=== PATIENT | female | born 1980 | race Caucasian/White ===

== ENCOUNTER 2021-05-06 20:07 | Emergency (ER) | payer OTHER ==
[~2021-05-06] VITALS: Ht 165.1 cm; Wt 89.0 kg
--- NOTE | 2021-05-06 20:17 | PHYS DOC ---
General Adult HPI: HPI: Patient is a 40 year old female with past medical history of fibromyalgia, chronic lymphedema and history of palpitations presents for evaluation after syncopal episode. Syncopal episode occurred prior to arrival. Patient started to feel faint sat down and then had a positive LOC. states patient was unresponsive for approximately 2 minutes. states when patient woke up she was hyperventilating and her bilateral hands were clenched. states patient was confused. No tonic-clonic activity was witnessed Patient arrived via EMS. At the time my examination she is alert and oriented x4. Her vital signs are stable. Patient has no complaints at this time Review of Systems: Review of Systems: Review of systems: Constitutional symptoms- No fever, no chills. Eyes- No Discharge, No Visual Loss Respiratory symptoms- No shortness of breath, No wheezing, No Dyspnea on Exertion Cardiovascular Systems; No chest pain, No Palpitations, No syncope Gastrointestinal symptoms: NO abdominal pain, no nausea, no vomiting or diarrhea. Genitourinary symptoms: No dysuria. Musculoskeletal symptoms: No back pain No extremity pain. NEUROLOGICAL Symptoms: No headache, no generalized weakness; No focal Weakness positive syncope Skin: No rash. Heart Score: C/O Chest Pain: N/A Risk Factors: Risk Factors: DM, Current or recent (<one month) smoker, HTN, HLP, family history of CAD, obesity. Risk Scores: Score 0 - 3: 2.5% MACE over next 6 weeks - Discharge Home Score 4 - 6: 20.3% MACE over next 6 weeks - Admit for Clinical Observation Score 7 - 10: 72.7% MACE over next 6 weeks - Early Invasive Strategies Physical Exam: PE: Constitutional: Well developed, well nourished, no acute distress, non-toxic appearance. [] HENT: Normocephalic, atraumatic, bilateral external ears normal, oropharynx moist, no oral exudates, nose normal. [] Eyes: PERRLA, EOMI, conjunctiva normal, no discharge. [] Neck: Normal range of motion, no tenderness, supple, no stridor. [] Cardiovascular:Heart rate regular rhythm, no murmur [] Lungs & Thorax: Bilateral breath sounds clear to auscultation [] Abdomen: Bowel sounds normal, soft, no tenderness, no masses, no pulsatile masses. [] Skin: Warm, dry, no erythema, no rash. [] Back: No tenderness, no CVA tenderness. [] Extremities: No tenderness, no cyanosis, no clubbing, ROM intact, no edema. [] Neurologic: Alert and oriented X 3, normal motor function, normal sensory function, no focal deficits noted. [] Psychologic: Affect normal, judgement normal, mood normal. [] EKG: EKG: [] Performed at 2015 Rate 75 Normal sinus rhythm No ST elevation No ST depression No acute PA Radiology/Procedures: Radiology/Procedures: [] Course & Med Decision Making: Course & Med Decision Making Pertinent Labs and Imaging studies reviewed. (See chart for details) [] Patient was evaluated for chief complaint. Work-up consisted of laboratory analysis radiologic imaging and EKG. Results reviewed and discussed with parent here. Patient without any acute lab or radiologic imaging. Treatment included IV fluids. Patient states she feels back to baseline we will discharge patient home with instructions to follow-up with primary care physician. Radha Disclaimer: Radha Disclaimer: This electronic medical record was generated, in whole or in part, using a voice recognition dictation system. Departure Departure Impression: Primary Impression: Syncope Disposition: HOME / SELF CARE / HOMELESS Condition: STABLE Patient Instructions: Syncope WANDA DAY I DO May 06, 2021 20:17
[2021-05-06 21:13] LABS: BASO # 0.1 x10^3/uL (0.0-0.2); BASO % 1 % (0-3); EOS # 0.3 x10^3/uL (0.0-0.7); EOS % 4 % (0-3); LYMPH # 4.3 x10^3/uL (1.0-4.8); LYMPH % 51 % (24-48); MEAN CORPUSCULAR HEMOGLOBIN 31 pg (25-35); MEAN CORPUSCULAR HGB CONC 34 g/dL (31-37); MEAN CORPUSCULAR VOLUME 91 fL (79-100); MONO # 0.6 x10^3/uL (0.0-1.1); MONO % 7 % (0-9); NEUT # 3.1 x10^3/uL (1.8-7.7); NEUT % 38 % (31-73); PLATELET COUNT 293 x10^3/uL (140-400); RED BLOOD COUNT 4.19 x10^6/uL (3.50-5.40); RED CELL DISTRIBUTION WIDTH 13.9 % (11.5-14.5); WHITE BLOOD COUNT 8.4 x10^3/uL (4.0-11.0)
[2021-05-06] MEDS ORDERED: IV NORMAL SALINE 1000ML BAG 1,000 ML IV ONE (21:15)
--- NOTE | 2021-05-06 21:24 | RAD ---
CT head without contrast dated 05/06/2021 9:20 PM Comparison: None CLINICAL INDICATION: Syncopal event TECHNIQUE: Contiguous axial imaging of the head was performed from skull base to vertex. One or more of the following individualized dose reduction techniques were utilized for this examinat ion: 1. Automated exposure control 2. Adjustment of the mA and/or kV according to patient size 3. Use of iterative reconstruction technique. FINDINGS: Ventricles and sulci are within normal limits for age. No midline shift or mass effect. Brain parench yma is of normal attenuation. No hemorrhage or extra-axial collection. Posterior fossa and brainstem unremarkable. Visualized paranasal sinuses and mastoid air cells are clear. No apparent calvarial abnormality. IMPRESSION: No evidence of acute intracranial abnormality. Electronically signed by: Shekhar Solorio MD (05/06/2021 9:21 PM) SERGIO
[2021-05-06 21:25] LABS: GFR 60.8; POTASSIUM 3.5 mmol/L (3.5-5.1)
[2021-05-06 21:31] LABS: ALBUMIN 3.8 g/dL (3.4-5.0); ALBUMIN/GLOBULIN RATIO 1.2 (1.0-1.7); TOTAL BILIRUBIN 0.3 mg/dL (0.2-1.0)
--- NOTE | 2021-05-06 22:09 | RAD ---
Single view chest dated 05/06/2021 10:05 PM: COMPARISON: None Clinical Indication: Syncope. Findings: Single upright portable exam of the chest was performed. Heart size and mediastinal contours are with in normal limits. Lungs are clear. No consolidation or pleural effusion. No pneumothorax. IMPRESSION: No acute radiographic abnormality. Electronically signed by: Shekhar Solorio MD (05/06/2021 10:06 PM) SERGIO
[2021-05-06 22:30] VITALS: BP 122/81
--- NOTE | 2021-05-06 23:48 | EKG ---
[facility] [address] [place] [id number] Test Date: 2021-05-06 Test Time: 20:15:25 Pat Name: TAMARA LEDEZMA Department: Room: Gender: F Senior [employer]: : [id number] Requested By: WANDA DAY Order Number: [id number] Reading MD: Measurements Intervals Gibson Rate: 75 P: 0 AR: 144 QRS: 56 QRSD: 78 T: 51 QT: 396 QTc: 445 Interpretive Statements SINUS RHYTHM NORMAL ECG RI6.02 No previous ECG available for comparison
== END 2021-05-06 22:50 | disposition home or self-care (01) ==
LOC: EDBD 20:07 → ER 20:07
DX: R55 Syncope and collapse (principal); R41.0 Disorientation, unspecified
CPT/HCPCS: 36415; 70450; 71045; 80053; 84484; 85025; 85379; 93005; 96360; 96361; 99285; G0480; J7030